=== PATIENT | male | born 1965 | race Caucasian/White ===

== ENCOUNTER 2022-07-20 10:41 | Emergency (ER) | payer BC, SELFPAY ==
--- NOTE | ~2022-07-20 | CT_ITS ---
EXAMINATION: CT lumbar spine wo con DATE: 07/20/2022 13:01 INDICATION: Back and right hip pain and numbness. TECHNIQUE: Computed tomography (CT) of the lumbar spine was performed without intravenous contrast. A utomated exposure control and iterative reconstruction technique were employed. The dose-length produ ct was 554.05 mGy-cm. COMPARISON: None FINDINGS: There are 3 masses in the visualized portion of left kidney measuring soft tissue attenuati on measuring up to 15 mm. Bone alignment is normal. There is a transitional segment at lumbosacral ju nction that is designated L5. Vertebral body heights are normal. There is moderately decreased disc h eight at L4-L5 with endplate remodeling. The following disc levels are specifically discussed: L1-L2: The disc does not extend beyond the endplate margin. There is severe right and moderate left f acet joint osteoarthritis. There is no neural foraminal stenosis. There is no central canal stenosis. L2-L3: The disc is bulging. There is severe bilateral facet joint osteoarthritis. There is mild left neural foraminal stenosis. There is mild central canal stenosis. L3-L4: The disc is bulging. There is mild right and moderate left facet joint osteoarthritis. There i s mild bilateral neural foraminal stenosis. There is mild central canal stenosis. L4-L5: The disc is bulging. There is severe bilateral facet joint osteoarthritis. There is moderate b ilateral neural foraminal stenosis. There is mild central canal stenosis. L5-S1: The disc does not extend beyond the endplate margin. There is no facet joint osteoarthritis. T here is no neural foraminal stenosis. There is no central canal stenosis. IMPRESSION: 1. Moderate lumbar spondylosis. 2. Left kidney masses measuring up to 15 mm, which may be hemorrhagic cysts or less likely neoplasm(s ). Abdomen MRI or CT without and with contrast is recommended. Reviewed, dictated and finalized at location [facility] IMPRESSION: 1. Moderate lumbar spondylosis. 2. Left kidney masses measuring up to 15 mm, which may be hemorrhagic cysts or less likely neoplasm(s). Abdomen MRI or CT without and with contrast is recomme nded.
--- NOTE | ~2022-07-20 | CT_ITS ---
Noncontrast CT scan of the pelvis CLINICAL HISTORY: Right hip pain TECHNIQUE: Axial noncontrast imaging of the pelvis was performed. Sagittal and coronal reformatted im ages were constructed. Dose reduction technique was used on this scan by utilizing automated exposure control and iterative reconstruction technique. FINDINGS: Visualized bowel loops are unremarkable. Urinary bladder unremarkable. Prostate gland and s eminal vesicles are unremarkable. No ascites. No pelvic lymphadenopathy seen. Distal abdominal aorta is mildly dilated to 3.1 cm. No fracture or dislocation seen. Osseous alignment is anatomic. Bilateral hip and SI joints are unrem arkable. No joint effusion. No gross soft tissue abnormality seen about the pelvis/hips. IMPRESSION: No osseous or articular abnormality seen. 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 Reviewed, dictated and finalized at [facility]. [facility]
[2022-07-20 10:47] VITALS: BP 168/81; PULSE 74; RESP 16; TEMP 36.6; O2SAT 97
--- NOTE | 2022-07-20 12:17 | ED.EXTPRO ---
HPI - Extremity Problem General Chief complaint: Extremity Problem,Nontraumatic Stated complaint: right knee pain Time Seen by Provider: 07/20/22 12:16 Source: patient and family Mode of arrival: ambulatory Limitations: no limitations History of Present Illness HPI Narrative: Patient is a 56-year-old male with a history of hypertension, hyperlipidemia, coronary artery disease s/p several stents, CVA, presenting to the emergency department for evaluation right leg pain. Patient reports burning, warm, tingling right leg pain on the lateral aspect of the right leg, that begins at the base of the buttock and travels down the side of the leg near to the knee. Patient reports that pain initially began as tingling sensation approximately 1 month ago that has worsened over time. Exacerbating symptoms include standing, sitting does help to relieve the pain. He denies any swelling, bruising, rash, blisters or lesions. No focal weakness or numbness. He has been ambulatory without fall or injury. He denies middle back pain. He denies systemic symptoms such as fever, chills, rigors. Patient has taken no [id number] medications or anti-inflammatories. Related Data Allergies Allergy/AdvReac Type Severity Reaction Status Date / Time codeine Allergy Vomiting Verified 07/20/22 11:26 Review of Systems Review of Systems: CONSTITUTIONAL: Denies fever CARDIOVASCULAR: Denies chest pain RESPIRATORY: Denies cough or dyspnea. GASTROINTESTINAL: Denies abdominal pain SKIN: Denies rash MUSCULOSKELETAL: Denies back pain, reports right upper leg pain NEUROLOGIC: Denies headache PMFSH Past Medical History Medical History (Updated 07/20/22 @ 13:56 by Radhika Moore MD) Coronary artery disease CVA (cerebral vascular accident) Hyperlipidemia Hypertension Myalgia Myocardial infarction Surgical History Surgical History (Updated 07/20/22 @ 12:39 by Radhika Moore MD) Stented coronary artery Social History Social History (Updated 07/20/22 @ 12:40 by Radhika Moore MD) Smoking status: Current every day smoker Tobacco type: cigarettes Alcohol intake: current Substance use: never Living arrangements: with family Gender identity (if verbalized by the patient): Male Exam Narrative: GENERAL: Awake, alert, conversant HEAD: Normocephalic, atraumatic. EYES: PERRLA and EOMI. ENT: Nares clear, no rhinorrhea or epistaxis. Mucous membranes moist. NECK: Supple. CHEST: No respiratory distress, breathing even and non labored HEART: Regular rate, sinus rhythm ABDOMEN:Non distended, non tender Thorax: No midline cervical pain, thoracic pain, lumbar pain. No step-offs or deformities EXTREMITIES: Normal range of motion. No edema. Patient with pain with extension and flexion at the right hip. No erythema, warmth, blistering. Intact flexion and extension of the right knee without limitation. SKIN: Warm, dry, no rash. NEURO:No focal deficits. Alert and oriented x3. Finger to nose intact bilaterally. EOMs intact without nystagmus. No facial droop/asymmetry noted bilaterally. Grimace intact. Intact sensation in face. Hearing intact bilaterally. Shoulder shrug intact. Strength 5/5 bilateral upper extremities. Strength 5/5 bilateral lower extremities. Reflexes 2+ patellar. Heel to garcia intact bilaterally. Patient does have pain in the right lower extremity with this movement. Ambulatory with a narrow base, steady gait. Course Vital Signs Vital signs: Vital Signs Temperature 36.6 C 07/20/22 10:47 Pulse Rate 74 07/20/22 10:47 Respiratory Rate 16 07/20/22 10:47 Blood Pressure 168/81 H 07/20/22 10:47 Pulse Oximetry 97 07/20/22 10:47 Oxygen Delivery Room Air 07/20/22 10:47 Temperature 36.6 C 07/20/22 10:47 Pulse Rate 74 07/20/22 10:47 Respiratory Rate 16 07/20/22 10:47 Blood Pressure 168/81 H 07/20/22 10:47 Pulse Oximetry 97 07/20/22 10:47 Oxygen Delivery Room Air 07/20/22 10:47 MDM -
[2022-07-20] MEDS: KETOROLAC (*BKC) 60 MG/2 ML VIAL 30 MG IM (12:49)
[2022-07-20] MEDS: ACETAMINOPHEN 500 MG TABLET 1000 MG PO (12:49)
[2022-07-20] MEDS: diazePAM (*CRX) 5 MG TABLET PO (13:06)
[2022-07-20 13:21] LABS: Basophils Percent Auto 0.4 % (0.2-1.2); Eosinophils Absolute Auto 0.4 K/mm3 (0-0.3); Eosinophils Percent Auto 4.6 % (0-4.4); Hematocrit 48.9 % (42.0-52.0); Hemoglobin 16.1 g/dL (14.0-18.0); Immature Granulocyte Absolute 0.03 K/mm3 (0.00-0.031); Immature Granulocyte Percent A 0.3 % (0-0.5); Lymphocytes Absolute Auto 2.77 K/mm3 (0.9-3.2); Lymphocytes Percent Auto 28.7 % (18.3-44.2); Mean Corpuscular HGB Conc 32.9 g/dl (32-36); Mean Corpuscular Hemoglobin 29.3 pg (26-34); Mean Corpuscular Volume 88.9 fl (80-100); Mean Platelet Volume 11.2 fl (7.4-10.4); Monocytes Absolute Auto 0.8 K/mm3 (0.1-0.6); Monocytes Percent Auto 7.8 % (2.6-8.5); Neutrophils Absolute Auto 5.6 K/mm3 (1.3-6.7); Neutrophils Percent Auto 58.2 % (45.5-73.1); Platelet Count Result 215 k/mm3 (150-375); Red Cell Distribution Width 14.1 % (11.5-14.5); White Blood Count 9.7 K/mm3 (4.5-10.0)
[2022-07-20 13:34] LABS: Anion Gap 4 mmol/L (8-16); Blood Urea Nitrogen 13 mg/dL (9-20); CRP 0.5 mg/dL (<1.0); Calcium 8.8 mg/dL (8.4-10.2); Carbon Dioxide 30 mmol/L (22-30); Chloride 99 mmol/L (98-107); Estimated CRCL calculation 51 ml/min; Estimated Glomerular Filt Rate 57; Glucose 88 mg/dL (65-110); Potassium 4.6 mmol/L (3.4-5.0); Sodium 133 mmol/L (137-145)
[2022-07-20 13:50] LABS: Erythrocyte Sedimentation Rate 18 mm/hr (0-20)
== END 2022-07-20 14:15 | disposition home or self-care (01) ==
PROVIDERS: Emergency Provider Emergency Medicine
DX: M79.651 Pain in right thigh (principal); M47.26 Other spondylosis with radiculopathy, lumbar region; E78.5 Hyperlipidemia, unspecified; I10 Essential (primary) hypertension; I25.10 Atherosclerotic heart disease of native coronary artery without angina pectoris; I25.2 Old myocardial infarction; F17.210 Nicotine dependence, cigarettes, uncomplicated; Z95.5 Presence of coronary angioplasty implant and graft; Z86.73 Personal history of transient ischemic attack (TIA), and cerebral infarction without residual deficits; N28.89 Other specified disorders of kidney and ureter
CPT/HCPCS: 36415; 72131; 72192; 80048; 85025; 85652; 86140; 96372; 99284; A9270; J1100; J1885